=== PATIENT | female | born 1960 | race Caucasian/White ===

== ENCOUNTER 2019-08-25 23:50 | Inpatient (IN) | payer MEDICARE, MEDICAID, SELFPAY ==
[2019-08-25 23:51] VITALS: PULSE 79; RESP 20; TEMP 36.3; O2SAT 98
[2019-08-26] VITALS (45 sets, daily range): BP systolic 82–136; BP diastolic 36–74; PULSE 64–98; RESP 4–26; TEMP 36.4–37.2; O2SAT 90–100
[2019-08-26] MEDS: Aspirin 81 MG CHEW 324 MG CH (00:06)
--- NOTE | 2019-08-26 00:08 | ED.GENADUL_ITS ---
Discharge Plan Disposition Patient Disposition: [facility] INPATIENT Condition: Poor Discharge Details Chief Complaint: Chest Pain Clinical Impression: Chest pain, COPD (chronic obstructive pulmonary disease) Primary Care Provider: Wendy,Local ED Provider: Rico Starks Mobile Meds and New Rx's Prescriptions: No Action atorvastatin 80 mg Tablet 80 mg PO QHS RF: 0 ipratropium-albuterol 0.5 mg-3 mg(2.5 mg base)/3 mL Solution For Nebulization 3 ml INHALATION QID RF: 0 metoprolol succinate 50 mg Tablet Extended Release 24 Hr 50 mg PO DAILY RF: 0 alendronate 70 mg Tablet 70 mg PO QWEEK RF: 0 thiamine HCl (vitamin B1) 100 mg Tablet 100 mg PO DAILY RF: 0 clopidogrel 75 mg Tablet 75 mg PO DAILY RF: 0 nicotine 10 mg Cartridge 1 inh INHALATION 4-6XD PRNRF: 0 aspirin [Aspir-81] 81 mg Tablet,Delayed Release (Dr/Ec) 81 mg PO DAILY RF: 0 nitroglycerin 0.4 mg Tablet, Sublingual 0.4 mg sublingual PRN PRNRF: 0 folic acid 1 mg Tablet 1 mg PO DAILY RF: 0 lisinopril 5 mg Tablet 5 mg PO DAILY RF: 0 furosemide 20 mg Tablet 60 mg PO BID RF: 0 albuterol sulfate 90 mcg/actuation Hfa Aerosol Inhaler 2 puff INHALATION RF: 0 tiotropium bromide 18 mcg Capsule, W/Inhalation Device 18 mcg INHALATION DAILY RF: 0 pregabalin 150 mg Capsule 150 mg PO DAILY RF: 0 calcium carbonate-vitamin D3 250-125 mg-unit Tablet 1 tab PO DAILY RF: 0 budesonide-formoterol 160-4.5 mcg/actuation Hfa Aerosol Inhaler 2 puff INHALATION BID RF: 0 omeprazole 20 mg Tablet,Delayed Release (Dr/Ec) 20 mg PO DAILY RF: 0 Medical Decision Making Patient presenting with onset of chest pain and shortness of breath over the last few hours. She had a stent placed about a month ago at [facility]. Will attempt to get those records as well as her previous EKG and med list. She is given aspirin here. She is given a second nitroglycerin. She is given morphine. She has had 2 DuoNeb's. She still has wheezing. Portable chest x-ray and laboratory studies obtained. Her revised [place] score makes her low probability for PE so d-dimer sent. Records obtained from [facility]. Patient presented to them at the beginning of July with chest pain and new left bundle branch block. She had intra-aortic balloon pump for period of time before receiving a stent in the left main/LAD. She has history of lung cancer with resection. CT scan done at [facility] revealed a new pulmonary nodule. She has cardiomyopathy and CHF with an LV ejection fraction around 30%. She has a history of alcohol abuse. She continues to smoke. Patient's left bundle branch block is old and compared to EKG from [facility] unchanged. Laboratory studies are unremarkable. Troponin negative. D- dimer still pending. Chest x-ray shows what presumably is some postoperative changes and COPD changes but nothing definite in terms of consolidation or edema. Patient doing better after 2 mg of morphine IV. Case discussed with hospitalist for admission and trending of enzymes as well as treatment of COPD. Patient's d-dimer came back elevated. Will proceed with CTA of chest. Second troponin being drawn now. Patient to be admitted to hospitalist service for further management. Medical Records Medical records reviewed: Yes I reviewed the patient's medical records. Lab Data Lab results reviewed: Yes I reviewed the patient's lab results. ECG Data Attestation: I personally reviewed and interpreted this ECG (s) as follows: Prior ECG tracings: available for review Interpretation: Sinus rhythm at 74. Left bundle branch block present. Left axis. No acute ST elevation or depression. HPI General Mode of arrival: EMS . Date/Time Provider Initiated Documentation: 08/25/19 23:55 . Limitations to Documentation: no limitations . Information obtained by: patient, family and old records reviewed . HPI Narra tive: Patient is brought in by ambulance with chest pain and shortness of breath. Patient is visiting from [place]. Within the last month, she underwent stent placement in the left main trunk extending into the LAD. She continues to smoke on and off. She does not know her medications. She reports being fine until tonight when she went out to smoke. She reports developing chest pain, wheezing, shortness of breath. EMS was called. She received 2 DuoNeb treatment in route as well as 1 sublingual nitroglycerin. She reports feeling a little better but still has difficulty breathing and pain. There is no radiation of pain. She denies being ill prior with any fever or cough. She denies nausea, abdominal pain, diaphoresis. Related Data Home Medications Medication Instructions Recorded Confirmed albuterol sulfate 2 puff INHALATION 08/26/19 alendronate 70 mg PO QWEEK 08/26/19 08/26/19 aspirin [Aspir-81] 81 mg PO DAILY 08/26/19 08/26/19 atorvastatin 80 mg PO QHS 08/26/19 08/26/19 budesonide-formoterol 2 puff INHALATION BID 08/26/19 08/26/19 calcium carbonate-vitamin D3 1 tab PO DAILY 08/26/19 08/26/19 clopidogrel 75 mg PO DAILY 08/26/19 08/26/19 folic acid 1 mg PO DAILY 08/26/19 08/26/19 furosemide 60 mg PO BID 08/26/19 08/26/19 ipratropium-albuterol 3 ml INHALATION QID 08/26/19 08/26/19 lisinopril 5 mg PO DAILY 08/26/19 08/26/19 metoprolol succinate 50 mg PO DAILY 08/26/19 08/26/19 nicotine 1 inh INHALATION 4-6XD PRN 08/26/19 08/26/19 nitroglycerin 0.4 mg SUBLINGUAL PRN PRN 08/26/19 08/26/19 omeprazole 20 mg PO DAILY 08/26/19 08/26/19 pregabalin 150 mg PO DAILY 08/26/19 08/26/19 thiamine HCl (vitamin B1) 100 mg PO DAILY 08/26/19 08/26/19 tiotropium bromide 18 mcg INHALATION DAILY 08/26/19 08/26/19 Allergies Allergy/AdvReac Type Severity Reaction Status Date / Time No Known Allergies Allergy Unverified 08/26/19 00:00 General Stated Complaint: Chest Pain FELICITA: 2 Review of Systems Narrative: 06/16 Review of Systems completed and is negative except as stated above in HPI (Systems reviewed: Const, Eyes, ENT, Resp, CV, GI, , MSK, Skin, Neuro) [facility] Medical History (Updated 08/26/19 @ 01:07 by Rico Starks MD) CAD (coronary artery disease) (Chronic) Cardiomyopathy (Chronic) CHF (congestive heart failure) (Chronic) COPD (chronic obstructive pulmonary disease) (Chronic) HTN (hypertension) (Chronic) Hypercholesterolemia (Chronic) Left bundle branch block (Chronic) Lung cancer (Chronic) Surgical History (Updated 08/26/19 @ 01:07 by Rico Starks MD) History of heart artery stent (Acute) S/P appendectomy (Resolved) S/P partial lobectomy of lung (Chronic) Social History (Updated 08/26/19 @ 01:08 by Rico Starks MD) Smoking/Tobacco Use Status: Current every day Tobacco Type: cigarettes Alcohol Intake: current Alcohol Intake frequency: 3 or more drinks per day Alcohol type: beer Substance use type: does not use Do you feel safe at home: Yes Exam Narrative Exam Narrative: Vitals: Afebrile. Normal vital signs with normal room air pulse oximetry. Const: WDWN female in NAD. HEENT: NC/AT. Normal facial exam. Eyes: Normal conjunctiva and sclera. Neck: Supple. Trachea midline. Lungs: Mild respiratory distress with decreased breath sounds and wheezing thro ughout. Cor: RRR without murmur/gallop. Good radial pulses. GI: Soft. NT/ND. No guarding or rebound. Neuro: A+O x 3. Normal speech and mentation. Cranial nerves grossly intact. No gross motor or sensory deficit. Ext: No C/C/E. No calf tenderness. Skin: Warm and dry without rash. Course Vital Signs Vital signs: Vital Signs Temperature 97.3 F L 08/25/19 23:51 Pulse 79 08/25/19 23:51 Respiratory Rate 20 08/25/19 23:51 Pulse Oximetry 98 08/25/19 23:51 Temperature 97.3 F L 08/25/19 23:51 Temperature Source Skin 08/25/19 23:51 Pulse 79 08/25/19 23:51 Respiratory Rate 20 08/25/19 23:51 Respiratory Effort Labored 08/25/19 23:51 Pulse Oximetry 98 08/25/19 23:51 Oxygen Delivery Method Room Air 08/25/19 23:51 Oxygen Flow Rate 0 08/25/19 23:51 Pain Level 7 08/25/19 23:51
[2019-08-26] MEDS: MORPHine 10 MG/ML VIAL 2 MG IVP (00:25)
--- NOTE | 2019-08-26 00:25 | DI.RAD_ITS ---
EXAM: XR PORTABLE CHEST AP INDICATION: CP/SOB. COMPARISON: No exams were available for comparison TECHNIQUE: 2D digital imaging was performed. FINDINGS: The heart is at the upper limits of normal given the projection. There is atherosclerosis of the thor acic aorta. No pleural effusions or pneumothoraces are identified. There is mild prominence of the pulmonary vasculature and interstitium. No focal consolidating infiltrates are seen. IMPRESSION: Prominent pulmonary vasculature and interstitium. This may represent pulmonary edema or interstitial pneumonia. Please correlate clinically.
[2019-08-26 00:27] LABS: Abs Immature Grans 0.02 k/cumm (0.0-0.09); Absolute Basophil Count 0.09 k/cumm (0.0-0.2); Absolute Eosinophil Count 0.67 k/cumm (0.0-0.7); Absolute Lymphocyte Count 2.66 k/cumm (1.2-3.4); Absolute Monocyte Count 1.19 k/cumm (0.11-0.7); Absolute Neutrophil Count 4.24 k/cumm (1.2-6.7); Eosinophils % 7.6; HCT 36.3 % (36.0-46.0); Immature Grans % 0.2; Mean Corp. HGB Concentration 33.1 g/dL (32.0-36.0); Mean Corpuscular Hemoglobin 31.1 pg (27.0-33.0); Mean Platelet Volume 9.6 fL (8.0-11.0); Monocytes % 13.4; Neutrophils % 47.8; Platelet Count 422 x1000/uL (130-400); RBC 3.86 m/cumm (4.00-5.20); RBC Distribution Width 12.8 % (11.7-14.6); White Blood Cell Count 8.87 k/cumm (4.4-10.8)
[2019-08-26 00:43] LABS: ALT 35 U/L (14-59); AST 24 U/L (15-37); Albumin 3.8 g/dL (3.4-5.0); Alkaline Phosphatase 62 U/L (46-116); Anion Gap 9.3 mmol/L (3-11); BUN 29 mg/dL (7-18); Bilirubin, Total 0.2 mg/dL (0.2-1.0); CO2 26.7 mmol/L (21.0-32.0); CREATININE 0.98 mg/dL (0.55-1.02); Calcium 8.4 mg/dL (8.5-10.1); Chloride 97 mmol/L (98-107); Glucose 69 mg/dL (74-106); Potassium 4.2 mmol/L (3.5-5.1); Sodium 133 mmol/L (136-145); Total Protein 7.8 g/dL (6.4-8.2); Troponin I < 0.05 ng/Ml (<0.06)
[2019-08-26 00:45] LABS: PTT Activated 23.7 sec (21.0-31.4); Prothrombin Time 9.7 sec (9.3-11.0)
[2019-08-26 00:49] LABS: NT-proBNP 1694 pg/mL (<300)
[2019-08-26] MEDS: Ondansetron 4 MG/2 ML VIAL IVP (01:35)
--- NOTE | 2019-08-26 01:44 | HPE_ITS ---
Date of service: 08/26/19 Time of Service: 01:44 Assessment and Plan Assessment and plan (1) Dyspnea: Status: Acute Assessment and plan: Differential diagnosis includes PE, CHF, COPD exacerbation. CTA of the chest is pending at this time. Check the results of his CTA but given her questionable venous compression study in her right leg I would not start her on Lovenox. If her CTA is negative and her formal duplex scan of her legs is negative in the morning then we can discontinue full- strength Lovenox just put her on DVT prophylactic levels. As far as rest of the work-up for her dyspnea we will get a get an echocardiogram in the morning and repeat her proBNP in the morning. I will treat her for COPD exacerbation however we need to keep in mind that she may actually have some acute on chronic heart failure from her ischemic cardiomyopathy. Because her blood pressures are on the low side I decided not to give her IV Lasix tonight. Qualifiers: Dyspnea type: shortness of breath Qualified Code(s): R06.02 - Shortness of breath (2) Chest pain at rest: Status: Acute Assessment and plan: so far no evidence for ACS. Initial troponin was negative. I will continue to cycle her troponin levels. She will continue on her beta blockers, ASA and plavix. She will be started on lovenox pending results of her CTA and her venous duplex of her legs. I suspect that her CP is secondary to her COPD/coughing and not d/t ACS. (3) COPD (chronic obstructive pulmonary disease): Status: Chronic Assessment and plan: Given her acute wheezing and dyspnea and continued smoking I suspect she is having COPD exacerbation. As such I will treat her with IV corticosteroids and aerosolized bronchodilators. There is no evidence for acute pulmonary infection. (4) CAD (coronary artery disease): Status: Chronic Assessment and plan: Her chest pain is atypical for ischemic pain however she has known coronary artery disease with recent coronary stenting. Therefore a low threshold for acute coronary syndrome should be maintained. She is been started on aspirin should be kept on her Plavix. As her blood pressure will tolerate we will keep her on her lisinopril and Toprol-XL. I will continue to cycle her troponin levels and check an echocardiogram in the morning. We will also get a repeat EKG in the morning. Her chest pain did not respond to nitroglycerin but seem to respond to morphine suggesting that this is not ischemic pain. (5) Cardiomyopathy: Status: Chronic Assessment and plan: Patient has evidence of at least a moderate cardiomyopathy. Her proBNP is elevated 1694. Her ultrasound of her lungs was not remarkable for pulmonary edema and currently her systolic blood pressures are in the low 90s and therefore get a hold off giving her any IV Lasix tonight. I will recheck her proBNP in the morning along with her other labs including h er troponin and BNP. If her CTA is negative and her venous duplex scan of her legs is negative and her proBNP remains elevated then consideration for acute on chronic congestive heart failure due to ischemic cardiomyopathy would be a higher priority (6) Elevated d-dimer: Status: Acute Assessment and plan: Rule out DVT, rule out PE. Check results of CTA of the chest. I reviewed the CTA results myself and did not see any obvious pulmonary embolism however the formal report is pending at this time. Given my findings of the right deep femoral and superficial femoral veins I am going to get a formal venous duplex scan and started on Lovenox. History of Present Illness History of Present Illness Chief Complaint: shortness of breath, chest pain Narrative: 59-year-old female smoker with history as severe COPD, coronary artery disease, recent myocardial infarction July 06, 2019 requiring intra-aortic balloon pump and subsequent DSE stent to her LAD, hypertension, hyperlipidemia, ischemic cardiomyopathy, chronic alcohol abuse, tobaccoism is currently visiting her grandson in [facility]. Patient is from [facility]. She presents to the emergency room at [facility] with acute onset of shortness of breath that began around 9 PM associated with substernal chest tightness and sharp pain with no pleuritic component to it. She has a chronic smoker's cough is been nonproductive. She has had no fever or chills or rigors. Upon presentation to the emergency department she was short of breath with respiratory rate of 20 breaths/min with oxygen saturation 98% on room air and a pulse of 79 bpm with a left bundle branch block pattern. She was afebrile. Blood pressure is 104/51. She was seen in the emergency department by Dr. Mariely Starks and subsequently by myself. Diagnostic work-up included routine labs including CBC, CMP, proBNP, troponin I, d-dimer, pro time and PTT. She also underwent EKG and chest x-ray. CBC was unremarkable. Specifically there was no leukocytosis and no anemia. CMP showed a mildly elevated BUN of 29 otherwise normal creatinine 0.98. LFTs were normal. proBNP was elevated at 1694. Troponin I was less than 0.05. D-dimer is elevated at 1641. Pro time is normal at 9.7 INR 1.0 PTT is 23.7. Chest x-ray showed no focal consolidation. Pleural space was unremarkable. Lungs showed low lung volumes with some prominent indistinct pulmonary vasculature but no consolidation. Radiologist read the prominent pulmonary vasculature is likely representing pulmonary edema. CTA of the chest is pending at this time. EKG demonstrates sinus rhythm at a rate of 74 bpm with a left bundle branch block pattern. This is similar to her ECG from July 06, 2019. Treatment by EMS included Solu-Medrol 125 mg IV and DuoNeb aerosol treatments x2 and sublingual nitroglycerin x1. She was given 3 and 24 mg of aspirin in the emergency department. Records obtained from a medical center indicates that she presented with a new onset left bundle branch block and chest pain along with elevated troponin levels consistent with a STEMI. She underwent cardiac catheterization was found to have left main artery disease with critical narrowing of her ostium of her LAD. She had an intra-aortic balloon pump placed on July 06 and subsequent PCI with drug-eluting stent to her LAD was placed on July 08, 2019. She was found to have a cardiomyopathy with a left ventricular ejection fraction around 30%. Although the patient states that she quit smoking at the time of her CA last month she presented to the emergency department with cigarette butts in her bra. Her chest pain was improved with morphine 2 mg IV push. Patient is now being admitted to the medical/surgical floor on telemetry for further evaluation of her dyspnea and chest pain. Presumption of her dyspnea is secondary to COPD exacerbation with a possible component of CHF. However CTA is pending at this time. I have started her empirically on Lovenox 1 mg/kg subcu every 12 hours until we get the results of her CTA of her chest and can get a formal venous duplex scan of her legs in the morning. I performed bedside [id number] ultrasound of her lungs as well as an echocardiogram venous compression study of her legs. Lung [id number] ultrasound study showed primarily a line pattern in both lungs with the exception of the left lung base there was some increased number of B-lines consistent with interstitial process. No pleural effusions were seen. No lung consolidation was seen. [id number] echocardiogram demonstrated moderate left ventricular dysfunction with paradoxical motion of the septal wall, hypokinetic anterior and anterolateral wall, akinetic apical wall and hypokinetic lateral wall. Right ventricular size and systolic function looks normal. There appears to be biatrial enlargement. Venous compression study of her lower extremities was normal on the left side however on the right side I had difficulty getting adequate compression of the right common femoral vein at the greater saphenous vein junction and at the split off of the deep femoral vein and superficial femoral vein. Review of Systems Constitutional Constitutional: Denies chills and Denies fever(s) Eyes Eyes: Reports system reviewed and no additional complaints, except as docu ENT Ears, Nose, Mouth, and Throat: Reports system reviewed and no additional complaints, except as docu Cardiovascular Cardiovascular: Reports as per HPI Respiratory Respiratory: Reports as per HPI Gastrointestinal Gastrointestinal: Reports system reviewed and no additional complaints, except as docu Genitourinary Genitourinary: Reports system reviewed and no additional complaints, except as docu Musculoskeletal Musculoskeletal: Reports system reviewed and no additional complaints, except as docu Integumentary/Breasts Skin/Breast: Reports system reviewed and no additional complaints, except as docu Neurologic Neurologic: Reports system reviewed and no additional complaints, except as docu Endocrine Endocrine: Reports system reviewed and no additional complaints, except as docu Hematologic/Lymphatic Hematologic/Lymphatic: Reports system reviewed and no additional complaints, except as docu Allergic/Immunologic Allergic/Immunologic: Reports system reviewed and no additional complaints, except as docu PFSH Family History (Updated 08/26/19 @ 04:13 by Blas Rodney) Mother Depression Dementia Parkinsonism Brother Heart disease Brother Heart disease Social History (Updated 08/26/19 @ 04:14 by Blas Rodney) Smoking/Tobacco Use Status: Current every day Tobacco Type: cigarettes Alcohol Intake: current Alcohol Intake frequency: 3 or more drinks per day Alcohol type: beer Substance use type: does not use Do you feel safe at home: Yes Meds Home Medications and Allergies Home Medications Medication Instructions Recorded Confirmed Type albuterol sulfate 2 puff INHALATION 08/26/19 History alendronate 70 mg PO QWEEK 08/26/19 08/26/19 History aspirin [Aspir-81] 81 mg PO DAILY 08/26/19 08/26/19 History atorvastatin 80 mg PO QHS 08/26/19 08/26/19 History budesonide-formoterol 2 puff INHALATION BID 08/26/19 08/26/19 History calcium carbonate-vitamin D3 1 tab PO DAILY 08/26/19 08/26/19 History clopidogrel 75 mg PO DAILY 08/26/19 08/26/19 History folic acid 1 mg PO DAILY 08/26/19 08/26/19 History furosemide 60 mg PO BID 08/26/19 08/26/19 History ipratropium-albuterol 3 ml INHALATION QID 08/26/19 08/26/19 History lisinopril 5 mg PO DAILY 08/26/19 08/26/19 History metoprolol succinate 50 mg PO DAILY 08/26/19 08/26/19 History nicotine 1 inh INHALATION 4-6XD PRN 08/26/19 08/26/19 History nitroglycerin 0.4 mg SUBLINGUAL PRN PRN 08/26/19 08/26/19 History omeprazole 20 mg PO DAILY 08/26/19 08/26/19 History pregabalin 150 mg PO DAILY 08/26/19 08/26/19 History thiamine HCl (vitamin B1) 100 mg PO DAILY 08/26/19 08/26/19 History tiotropium bromide 18 mcg INHALATION DAILY 08/26/19 08/26/19 History Allergies Allergy/AdvReac Type Severity Reaction Status Date / Time No Known Allergies Allergy Unverified 08/26/19 00:00 Exam Narrative Exam Narrative: Middle-aged female who appears to be older than her stated age of 59. She has a disheveled appearance. She has multiple tattoos. She is not in acute respiratory distress. No accessory respiratory muscle use. HEENT is unremarkable. Neck is supple no JVD normal carotid pulses no bruits Lungs reveal scattered end expiratory wheezes no rhonchi or rales. Heart is regular without appreciable murmur rub or gallop. She has a fixed split S2. Abdomen is obese soft and nontender without organomegaly without palpable masses or bruits. Extremities without peripheral cyanosis or edema. No calf tenderness or swelling. Neurologic exam is grossly intact nonfocal. Results Labs Result diagrams: 08/25/19 23:55 08/25/19 23:55 Labs: Laboratory Results - last 24 hr 08/25/19 08/25/19 08/25/19 23:55 23:55 23:55 WBC 8.87 RBC 3.86 L Hgb 12.0 Hct 36.3 MCV 94.0 MCH 31.1 MCHC 33.1 RDW 12.8 Plt Count 422 H MPV 9.6 Immature Gran % 0.2 Neutrophils % 47.8 Lymphocytes % 30.0 Monocytes % 13.4 Eosinophils % 7.6 Basophils % 1.0 Absolute Neutrophils 4.24 Absolute Lymphocytes 2.66 Absolute Monocytes 1.19 H Absolute Eosinophils 0.67 Absolute Basophils 0.09 PT INR APTT Sodium 133 L Potassium 4.2 Chloride 97 L Carbon Dioxide 26.7 Anion Gap 9.3 BUN 29 H Creatinine 0.98 Estimated GFR/1.73 m2 57.70 Glucose 69 L Calcium 8.4 L Magnesium 2.0 Total Bilirubin 0.2 AST 24 ALT 35 Alkaline Phosphatase 62 Troponin I < 0.05 NT-Pro-B Natriuret Pep 1694 Total Protein 7.8 Albumin 3.8 08/25/19 23:55 WBC RBC Hgb Hct MCV MCH MCHC RDW Plt Count MPV Immature Gran % Neutrophils % Lymphocytes % Monocytes % Eosinophils % Basophils % Absolute Neutrophils Absolute Lymphocytes Absolute Monocytes Absolute Eosinophils Absolute Basophils PT 9.7 INR 1.0 APTT 23.7 Sodium Potassium Chloride Carbon Dioxide Anion Gap BUN Creatinine Estimated GFR/1.73 m2 Glucose Calcium Magnesium Total Bilirubin AST ALT Alkaline Phosphatase Troponin I NT-Pro-B Natriuret Pep Total Protein Albumin Last Vital Signs Temp 36.3 C L 08/25/19 23:51 Pulse 87 08/26/19 00:17 Resp 16 08/26/19 00:20 BP 107/43 L 08/26/19 00:17 Pulse Ox 94 L 08/26/19 00:20
[2019-08-26 01:45] LABS: D-Dimer 1641 ng/mlFEU (<500)
--- NOTE | 2019-08-26 01:50 | DI.VRAD_ITS ---
PROCEDURE INFORMATION: Exam: XR Chest, 1 View Exam date and time: 08/26/2019 12:02 AM Age: 59 years old Clinical indication: Shortness of breath; Type not specified; Patient HX: Chest pain, SOB; Additional info: HX lung CA, partial lobectomy, copd, cad, chf TECHNIQUE: Imaging protocol: XR of the chest Views: 1 view. COMPARISON: No relevant prior studies available. FINDINGS: Lungs: Low lung volumes. Prominent, indistinct pulmonary vasculature. No focal consolidation. Pleural space: Unremarkable. No pleural effusion. No pneumothorax. Heart/Mediastinum: Enlarged cardiomediastinal silhouette. Bones/joints: Unremarkable. IMPRESSION: Prominent, indistinct pulmonary vasculature may be accentuated by low lung volumes but likely represents pulmonary edema. No focal consolidation. Dictated and Authenticated by: Hay Sarmiento MD. Ordering:CARMELA Gómez MD
--- NOTE | 2019-08-26 02:10 | NUR.NOTE ---
Nursing Note: 0115: pt complaining of nausea. Dr Starks informed. Orders given
--- NOTE | 2019-08-26 02:11 | NUR.NOTE ---
Nursing Note: 0135: Pt now resting. States pain is about a 1. No other c/o at this time.
--- NOTE | 2019-08-26 02:52 | NUR.NOTE ---
Nursing Note: Blood for repeat troponin drawn and sent to lab.
--- NOTE | 2019-08-26 03:16 | DI.CT_ITS ---
EXAM: CT CHEST PE CTA CLINICAL HISTORY: CP/SOB. TECHNIQUE: Imaging Protocol: Axial CT angiography was performed with multi-slice acquisition and mu lti-planar and/or 3D reconstructions. CONTRAST MATERIAL: Intravenous: Omnipaque 350 Contrast volume:70 mL contrast route:IV - Oral: COMPARISON: XR PORTABLE CHEST AP from 08/26/2019 FINDINGS: Pulmonary Arteries: No evidence of filling defect to suggest pulmonary emboli. Tracheobronchial tree: Patent where visualized. Mediastinum and Binta: No dominant adenopathy or fluid collection. Pulmonary parenchyma: Emyhysematous changes are seen in the lungs. No focal consolidating infiltrate s are present. Mild dependent atelectatic changes are seen in the lung bases. Pleura: No effusion or pneumothorax. Heart/Aorta: No evidence of thoracic aortic aneurysm or dissection. There is atherosclerosis present . The heart is not dilated. Coronary artery calcifications are present. No significant pericardial effusion or evidence of right heart strain is present. Upper abdomen: Cholelithiasis. There is a question of calcification in the wall of the gallbladder. Bones: Degenerative changes are seen in the spine. IMPRESSION: 1. There is no evidence of a pulmonary embolus, thoracic aortic dissection or aneurysm. 2. Pulmonary emphysema. 3. Cholelithiasis. Question of calcification of the wall of the gallbladder. CT scan of the abdomen and or ultrasound of the gallbladder should be considered for further evaluation. DATA REPOSITORY: All CT scans at this facility are submitted to the National Radiology Data Registry (NRDR) Dose Index Registry (DIR) with the [employer] (A[employer]). RADIATION OPTIMIZATION: All CT scans at this facility use at least one of these dose optimization te chniques: automated exposure control; mA and/or kV adjustment per patient size (includes targeted exa ms where dose is matched to clinical indication); or iterative reconstruction.
[2019-08-26] MEDS: Omnipaque 350 MG/ML 100 ML BTL IJ (03:19)
--- NOTE | 2019-08-26 03:25 | NUR.NOTE ---
Nursing Note: Return from CT. Patient denies any pain at this time.
[2019-08-26] MEDS: Enoxaparin 80 MG/0.8 ML SYR SC (03:35)
--- NOTE | 2019-08-26 04:23 | DI.VRAD_ITS ---
PROCEDURE INFORMATION: Exam: CT Angiography Chest With Contrast Exam date and time: 08/26/2019 3:13 AM Age: 59 years old Clinical indication: Pain and abnormal findings; Abnormal diagnostic tests; Shortness of breath; Chest pain; Type not specified; Prior surgery; Surgery date: 6+ months; Surgery type: Partial lobectomy , HX of lung CA 2008; Patient HX: SOB, cp, elevated d-dimer, copd, chf, . left bundle branch block, hypertension, heart artery stent TECHNIQUE: Imaging protocol: Computed tomographic angiography of the chest with intravenous contrast. 3D rendering: MIP and/or 3D reconstructed images were created by the technologist. Radiation optimization: All CT scans at this facility use at least one of these dose optimization techniques: automated exposure control; mA and/or kV adjustment per patient size (includes targeted exams where dose is matched to clinical indication); or iterative reconstruction. Contrast material: OMNIPAQUE 350; Contrast volume: 70 ml; Contrast route: IV RAC; COMPARISON: XR PORTABLE CHEST AP 08/26/2019 12:07 AM FINDINGS: Pulmonary arteries: Normal. No pulmonary emboli. Aorta: Unremarkable. No aortic aneurysm. No aortic dissection. Lungs: Minimal pulmonary emphysema. No acute pulmonary infiltrate. Pleural space: Unremarkable. No pneumothorax. No pleural effusion. Heart: Unremarkable. No cardiomegaly. No pericardial effusion. Gallbladder and bile ducts: Cholelithiasis. Lymph nodes: Unremarkable. No enlarged lymph nodes. Bones/joints: Unremarkable. No acute fracture. Soft tissues: Unremarkable. Other findings: Postsurgical change in the right hemithorax. IMPRESSION: No acute finding. Dictated and Authenticated by: Dominic Pizano MD. Ordering:CARMELA Gómez MD
[2019-08-26] MEDS: Albuterol/Ipratropium 3 ML UPD VIAL UPD (04:47)
[2019-08-26] MEDS: methylPREDNISolone SUCC 125 MG VIAL 60 MG IVP ×2 (06:25→14:17)
[2019-08-26 06:41] LABS: Troponin I < 0.05 ng/Ml (<0.06)
[2019-08-26 06:51] LABS: Abs Immature Grans 0.01 k/cumm (0.0-0.09); Absolute Basophil Count 0.02 k/cumm (0.0-0.2); Absolute Eosinophil Count 0.01 k/cumm (0.0-0.7); Absolute Lymphocyte Count 0.41 k/cumm (1.2-3.4); Absolute Monocyte Count 0.06 k/cumm (0.11-0.7); Absolute Neutrophil Count 4.16 k/cumm (1.2-6.7); Basophils % 0.4; Eosinophils % 0.2; HCT 35.3 % (36.0-46.0); HGB 11.6 g/dL (12.0-15.5); Immature Grans % 0.2; Lymphocytes % 8.8; Mean Corp. HGB Concentration 32.9 g/dL (32.0-36.0); Mean Corpuscular Hemoglobin 30.9 pg (27.0-33.0); Mean Corpuscular Volume 94.1 fL (80-95); Mean Platelet Volume 9.7 fL (8.0-11.0); Monocytes % 1.3; Neutrophils % 89.1; Platelet Count 395 x1000/uL (130-400); RBC 3.75 m/cumm (4.00-5.20); RBC Distribution Width 12.8 % (11.7-14.6); White Blood Cell Count 4.67 k/cumm (4.4-10.8)
[2019-08-26 06:53] LABS: Anion Gap 9.4 mmol/L (3-11); BUN 28 mg/dL (7-18); CO2 24.6 mmol/L (21.0-32.0); CREATININE 0.98 mg/dL (0.55-1.02); Calcium 8.1 mg/dL (8.5-10.1); Chloride 99 mmol/L (98-107); Glucose 132 mg/dL (74-106); Potassium 5.5 mmol/L (3.5-5.1); Sodium 133 mmol/L (136-145)
[2019-08-26 07:21] LABS: NT-proBNP 1808 pg/mL (<300); Troponin I < 0.05 ng/Ml (<0.06)
[2019-08-26] MEDS: Aspirin E.C. 81 MG TABEC PO (08:16)
[2019-08-26] MEDS: Pregabalin 50 MG CAP 150 MG PO (08:16)
[2019-08-26] MEDS: Folic Acid 1 MG TAB PO (08:17)
[2019-08-26] MEDS: Metoprolol CR 50 MG TABCR PO (08:17)
[2019-08-26] MEDS: Thiamine 100 MG TAB PO (08:17)
[2019-08-26] MEDS: Omeprazole 20 MG CAPCR 40 MG PO (08:18)
[2019-08-26] MEDS: Clopidogrel 75 MG TAB PO (08:18)
[2019-08-26 08:30] LABS: D-Dimer 1302 ng/mlFEU (<500)
[2019-08-26] MEDS: Budesonide/Formoterol 160/4.5 6 GM 60 PUFF INH IH ×2 (08:34→19:39)
--- NOTE | 2019-08-26 09:00 | DI.US_ITS ---
APPROVED REPORT EXAM: Comprehensive 2D, Doppler, and color-flow Echocardiogram Patient Location: In-Patient [place] Clerk: Araceli Funes RDCS (AE) Rhythm: BBB Indications: dyspnea, chest pain. hx LAD DSE stent 07/08/19, NSTEMI/ LBBB 07/06/19 Conclusion Normal left ventricular size and wall thickness EF is 55% with mild apical and distal anterior hypo kinesis The left atrium is mildly dilated The aortic valve is structurally normal Thickened mitral leaflets with mild regurgitation Trace tricuspid regurgitation Wall motion Left Ventricle The left ventricle is normal size. Left ventricular systolic function is borderline. There is normal left ventricular wall thickness. apical and distal anterior hypokinesis Transmitral Doppler flow puneet angela suggests impaired LV relaxation. LVEF is estimated to be 55% Right Ventricle The right ventricle is normal size. The right ventricular systolic function appears normal. Atria Left atrium is mildly dilated. The right atrium size is normal. Aortic Valve The aortic valve is normal in structure. There is no aortic valvular stenosis. No aortic regurgitatio n is present. Mitral Valve Mitral valve leaflets are mildly thickened. Mild mitral annular calcification. Mild mitral regurgitat ion.regurgitation. Tricuspid Valve The tricuspid valve is normal in structure. Trace tricuspid regurgitation. Pulmonic Valve Pulmonic valve is not well visualized. Great Vessels The aortic root is normal in size. IVC is top normal in size and collapses >50% with inspiration. Pericardium There is no pericardial effusion. 2D Dimensions IVSd 0.70 cm F: 0.6-1.0 LV EDV A2C 104.00 mL PWd 0.70 cm F: 0.6 - 1.0 LV EDV A4C 89.10 mL LVDd 5.60 cm F: 3.8 - 5.2 LA Volume Index A2C 34.35 mL/m2 LVDs 3.95 cm F: 2.2 - 3.5 LA Volume Index A4C 38.17 mL/m2 Aortic Root 3.15 cm F: 2.7 - 3.3 LA Volume Index Biplane 37.33 mL/m2 RA Area A4C 10.53 cm2 LA Area A4C 21.83 cm2 LVOT 1.95 cm (M/F) 1.5-2.5 LA Area A2C 20.09 cm2 Ascending Aorta 2.96 cm F: 2.3 - 3.1 EF AP4 54.43 % LVEF (Teich) 55.35 % EF AP2 55.77 % LVEF (Porras's) 51.93 % F: 54 - 74 EF BP 51.93 % LV Volume 74.87 mL F: 46 - 106 LV Volume Index 42.78 mL/m2 F: 29 - 61 FS 29.15 % LV Diastology E/A Ratio 0.7 MED E' 0.09 (>0.07 m/s) LV E/e MED 8.50 (<14) LAT E' 0.10 (>0.1 m/s) LV E/e LAT 7.90 (<14) Pulm Vein s 0.54 m/s PV S/D Ratio 1.01 Pulm Vein d 0.53 m/s Aortic Valve LVOT Area 3.07 cm2 LVOT Vmax 1.13 m/s LVOT Mean Ambrocio. 0.88 m/s LVOT Peak Gr. 5.1 mmHg LVOT Mean Gr. 3.4 mmHg AoV Area/ BSA (Vmax) 1.13 cm2/m2 LVOT VTI 0.200 m AoV Vmax 1.76 (0.5-1.3 m/s) VICKI Mean Ambrocio. Index 1.25 cm2/m2 AoV Mean Ambrocio. 1.24 m/s AoV Peak Grad 12.4 mmHg AoV Mean Grad 6.8 (<5 mmHg) AoV VTI 0.350 (0.18-0.25 m) VTI Ratio 0.66 AoV Area VTI 2.03 (2.5-4.5 cm2) AoV Area/ BSA (VTI) 1.16 cm/m2 Mitral Valve MV E Max Ambrocio. 0.76 (0.4-1.3 m/s) MVA VTI 6.44 (4.0-6.0 cm2) MV A Velocity 1.15 (0.4-1.3 m/s) E/A Ratio 0.64 Tricuspid Valve RAP Estimate 3.00 mmHg
[2019-08-26 09:35] LABS: Troponin I < 0.05 ng/Ml (<0.06)
--- NOTE | 2019-08-26 10:11 | DI.US_ITS ---
EXAM: US EXTREMITY VENOUS BI CLINICAL HISTORY: ELEVATED D-DIMER TECHNIQUE: Bilateral lower extremity venous ultrasound performed using grayscale, color-flow, and sp ectral Doppler analysis. COMPARISON: No previous for comparison. FINDINGS: The bilateral common femoral, femoral and popliteal veins demonstrate normal compressibility, augment ation, and color Doppler. The posterior tibial veins are patent. The saphenofemoral junctions are un remarkable. Note is made of a 2.8 x 0.9 x 2.3 cm left Bowden's cyst. IMPRESSION: Right: Negative for DVT Left: Negative for DVT
--- NOTE | 2019-08-26 11:12 | PHARADMIT ---
Admission Pharmacy Clinical Review Dyspnea, Chest pain, (Hx of recent SD with stent placement) (COPD exacerbation, ?? clot) Cardiology consult Code Status Full Code Current Weight Wgt-71.5 kg Renally Cleared and Narrow Therapeutic Index Meds CrCl~ 45.4 mL/min Meds-OK QTc Value / Action Taken QTc-492 BP Control, Fever BP- 113/70 Tmax- 36.7C Electrolytes reviewed Na- 133 K+5.5 Mag-2.0 DVT Prophylaxis ASA, Plavix, Lovenox 80MG bid Opiate Usage / Scheduled Bowel Regimen Ordered Yes Yes Plt/SCr for Heparin / Enoxaparin Plts-395 SCr-0.98 INR for Warfarin inr-1.1 H/H stable, WBC/Bands H&H- 11.6/35.3 WBC- 4.67 Antibiotic appropriateness none Cultures and Sensitivities none Surgical ABX d/c within 24 hr na DM control / Insulin Dosing BG-132 Heart Failure (Check EF%) (JD's, B-Block, Diuretics) Lasix, Toprol-XL, NTG IV to PO Switch No Home Meds Reviewed Yes Home Meds Not Ordered Alendronate, Spiriva, Comments Lisinopril on Hold,
[2019-08-26 11:59] LABS: Potassium 6.1 mmol/L (3.5-5.1)
[2019-08-26] MEDS: Insulin REGULAR-Human 100 UNITS/ML UNIT 10 UNITS IV (12:30)
[2019-08-26] MEDS: Furosemide 40 MG/4 ML VIAL IVP (12:30)
[2019-08-26] MEDS: Dextrose 50%-Water 25 GM/50 ML SYR IVP (12:31)
[2019-08-26] MEDS: Levalbuterol 1.25 MG/3 ML UPD VIAL UPD (12:59)
[2019-08-26 13:10] LABS: BUN 27 mg/dL (7-18); CREATININE 1.07 mg/dL (0.55-1.02); Calcium 9.1 mg/dL (8.5-10.1); Chloride 96 mmol/L (98-107); Creatine Kinase 86 U/L (26-192); Estimated GFR 52.13 (mL/min/1.73m2); Sodium 133 mmol/L (136-145)
[2019-08-26] MEDS: Ipratropium 0.5 MG/2.5 ML UPD VIAL UPD ×2 (13:10→18:56)
[2019-08-26 13:11] LABS: Glucose 501 mg/dL (74-106)
[2019-08-26 15:13] LABS: Anion Gap 9.4 mmol/L (3-11); BUN 28 mg/dL (7-18); CO2 26.6 mmol/L (21.0-32.0); CREATININE 1.13 mg/dL (0.55-1.02); Calcium 9.6 mg/dL (8.5-10.1); Chloride 97 mmol/L (98-107); Estimated GFR 48.95 (mL/min/1.73m2); Glucose 113 mg/dL (74-106); Sodium 133 mmol/L (136-145)
--- NOTE | 2019-08-26 15:38 | INITIAL_ITS ---
- If Service Date Differs Date of service: 08/26/19 Time of Service: 15:38 Care Management Initial Assess REASON FOR HOSPITALIZATION:: Dyspnea, chest pain. PAST MEDICAL HISTORY/PAST SURGICAL HISTORY:: Medical History: CAD (coronary artery disease), Cardiomyopathy,. CHF (congestive heart failure), COPD (chronic obstructive pulmonary disease),. HTN (hypertension), Hypercholesterolemia, Left bundle branch block, and. Lung cancer. Surgical History: History of heart artery stent, S/P appendectomy (Resolved), and S/P partial lobectomy of lung. PREVIOUS FUNCTIONAL STATUS/SOCIAL/FAMILY SUPPORTS:: Jazmin resides in [place], [place], with her sister and [id number]. She recently came to [place] to visit her grandchildren for the holidays. Jazmin has a son who lives in [place], a daughter and three grandchildren in [place], [place], and a znxzeiss-id-tfg and two grandkids in [place], [place]. She shares her wtglipde-rv-uhc was to her son but he from an overdose 4 years ago. When home and feeling well, Jazmin helps her sister clean the house and do laundry. She enjoys camping, picnics, knitting, and puzzles. Jazmin does not drive but she is independent with her ADLs at baseline. CURRENT FUNCTIONAL STATUS:: Jazmin is lying in bed watching television when CM comes to meet with her. She is pleasant and easily engages in conversation. She shares that her [id number]-lr-ttb drove her to [place] so she could visit with her grandchildren. She plans on returning home to [place] on Sunday if she has been discharged from the hospital by then. ADVANCE DIRECTIVES:: None on file. Has patient been provided with information about the portal?: No Did the patient sign up for the portal?: No CODE STATUS:: Full Code INSURANCE COVERAGE / FINANCIAL ISSUES:: Medicare. CURRENT HOME/COMMUNITY SERVICES/EQUIPMENT:: Jazmin reports she formerly received [facility] PT but is not currently receiving any in-home services. She states she uses oxygen at home but only requires it with activity or at night when sleeping. PRIMARY CARE PHYSICIAN:: No current PCP. Her provider is Dr. Cyndi Gordon of the . POTENTIAL DISCHARGE NEEDS:: Follow-up appointment with PCP and crop consultant. PATIENT/FAMILY EDUCATION NEEDS:: Discharge plan, limitations, follow-up plan, including Ask Me Three and self-management. ANTICIPATED BARRIERS TO DISCHARGE:: None. TRANSPORTATION:: Via private vehicle by family member when ready. PLAN:: Jazmin will be discharged home when medically cleared by provider. Anticipate no new services at time of discharge. [facility] will transport Jazmin home via private vehicle when ready.
--- NOTE | 2019-08-26 16:19 | W.PM.PROGNOT ---
Date of Service Date of service: 08/26/19 Time of Service: 16:19 Subjective Subjective Interval history since last seen: The patient's breathing is significantly better. No more chest pain since last night. Denies dizziness, nausea. She states she uses oxygen at home - 2L at night. She is on 2L during the day here today. We will attempt to wean this. K this morning 5.5 - it was 4.2 yesterday. Per patient, her PCP had told her that her potassium was creeping up about a month ago. It went up as high as 6.1 today. This was treated with D50, regular insulin 10 units IV, veltassa, and the patient was restarted on her lasix. With this, the potassium went down to 5.0. Etiology of hyperkalemia - suspected lovenox. Now d/'rodrick. We will recheck potassium in am. As far as her chest pain, she has ruled out for ACS. We will continue to monitor her on tele because she had a 12 episode run of SVT at 5 am today, asymptomatic, shortly after receiving duonebs. Her nebs since then have been changed to atrovent and xopenex. No recurrences of SVT so far. Her steroids have been switched to PO due to marked improvement. Finally, the patient ruled out for DVT - lovenox now d/c'ed. TEDs and SCDs initiated for DVT ppx. Objective Objective Clinical Data: Abnormal lab results 08/25/19 08/25/19 08/25/19 Range/Units 00:10 23:55 23:55 RBC 3.86 L (4.00-5.20) m/cumm Hgb (12.0-15.5) g/dL Hct (36.0-46.0) % Plt Count 422 H (130-400) x1000/uL Absolute Lymphocytes (1.2-3.4) k/cumm Absolute Monocytes 1.19 H (0.11-0.7) k/cumm D-Dimer 1641 H (<500) ng/mlFEU Sodium 133 L (136-145) mmol/L Potassium (3.5-5.1) mmol/L Chloride 97 L (98-107) mmol/L BUN 29 H (7-18) mg/dL Creatinine (0.55-1.02) mg/dL Glucose 69 L (74-106) mg/dL Calcium 8.4 L (8.5-10.1) mg/dL 08/26/19 08/26/19 08/26/19 Range/Units 06:10 06:10 07:13 RBC 3.75 L (4.00-5.20) m/cumm Hgb 11.6 L (12.0-15.5) g/dL Hct 35.3 L (36.0-46.0) % Plt Count (130-400) x1000/uL Absolute Lymphocytes 0.41 L (1.2-3.4) k/cumm Absolute Monocytes 0.06 L (0.11-0.7) k/cumm D-Dimer 1302 H (<500) ng/mlFEU Sodium 133 L (136-145) mmol/L Potassium 5.5 H D (3.5-5.1) mmol/L Chloride (98-107) mmol/L BUN 28 H (7-18) mg/dL Creatinine (0.55-1.02) mg/dL Glucose 132 H (74-106) mg/dL Calcium 8.1 L (8.5-10.1) mg/dL 08/26/19 08/26/19 08/26/19 Range/Units 09:00 12:45 14:39 RBC (4.00-5.20) m/cumm Hgb (12.0-15.5) g/dL Hct (36.0-46.0) % Plt Count (130-400) x1000/uL Absolute Lymphocytes (1.2-3.4) k/cumm Absolute Monocytes (0.11-0.7) k/cumm D-Dimer (<500) ng/mlFEU Sodium 133 L 133 L (136-145) mmol/L Potassium 6.1 H* (3.5-5.1) mmol/L Chloride 96 L 97 L (98-107) mmol/L BUN 27 H 28 H (7-18) mg/dL Creatinine 1.07 H 1.13 H (0.55-1.02) mg/dL Glucose 501 H* D 113 H D (74-106) mg/dL Calcium (8.5-10.1) mg/dL Vital Signs Temperature 37.2 C 08/26/19 11:47 Temperature Source Tympanic 08/26/19 11:47 Pulse 92 H 08/26/19 15:15 Pulse Rhythm Regular 08/26/19 08:30 Pulse 76 08/26/19 03:46 Respiratory Rate 16 08/26/19 13:28 Respiratory Effort Non-Labored 08/26/19 08:30 Respiratory Depth Normal 08/26/19 08:30 Respiratory Pattern Normal 08/26/19 08:30 Blood Pressure 136/71 08/26/19 11:47 Blood Pressure Mean 56 08/26/19 03:45 Pulse Oximetry 96 08/26/19 13:28 Oxygen Delivery Method Nasal Cannula 08/26/19 12:59 Oxygen Flow Rate 2 08/26/19 12:59 Pain Level 0 08/26/19 07:43 Comment 08/26/19 04:13 Intake & Output 08/25/19 08/26/19 08/26/19 23:59 11:59 23:59 Intake Total 360 / 720 360 / 720 Output Total 350 / 950 600 / 950 Balance 10 / -230 -240 / -230 Weight 76 kg 71.5 kg Intake: Oral 360 / 720 360 / 720 Output: Urine 350 / 950 600 / 950 Other: Urine Color Light Sue Light Sue Urine Appearance Clear Clear Voiding Methods Bedside Commode Laboratory Results WBC 4.67 k/cumm (4.4-10.8) D 08/26/19 06:10 RBC 3.75 m/cumm (4.00-5.20) L 08/26/19 06:10 Hgb 11.6 g/dL (12.0-15.5) L 08/26/19 06:10 Hct 35.3 % (36.0-46.0) L 08/26/19 06:10 MCV 94.1 fL (80-95) 08/26/19 06:10 MCH 30.9 pg (27.0-33.0) 08/26/19 06:10 MCHC 32.9 g/dL (32.0-36.0) 08/26/19 06:10 RDW 12.8 % (11.7-14.6) 08/26/19 06:10 Plt Count 395 x1000/uL (130-400) 08/26/19 06:10 MPV 9.7 fL (8.0-11.0) 08/26/19 06:10 Immature Gran % 0.2 08/26/19 06:10 Neutrophils % 89.1 08/26/19 06:10 Lymphocytes % 8.8 08/26/19 06:10 Monocytes % 1.3 08/26/19 06:10 Eosinophils % 0.2 08/26/19 06:10 Basophils % 0.4 08/26/19 06:10 Absolute Neutrophils 4.16 k/cumm (1.2-6.7) 08/26/19 06:10 Absolute Lymphocytes 0.41 k/cumm (1.2-3.4) L 08/26/19 06:10 Absolute Monocytes 0.06 k/cumm (0.11-0.7) L 08/26/19 06:10 Absolute Eosinophils 0.01 k/cumm (0.0-0.7) 08/26/19 06:10 Absolute Basophils 0.02 k/cumm (0.0-0.2) 08/26/19 06:10 PT 9.7 sec (9.3-11.0) 08/25/19 23:55 INR 1.0 (0.9-1.1) 08/25/19 23:55 APTT 23.7 sec (21.0-31.4) 08/25/19 23:55 D-Dimer 1302 ng/mlFEU (<500) H 08/26/19 07:13 Sodium 133 mmol/L (136-145) L 08/26/19 14:39 Potassium 5.0 mmol/L (3.5-5.1) 08/26/19 14:39 Chloride 97 mmol/L (98-107) L 08/26/19 14:39 Carbon Dioxide 26.6 mmol/L (21.0-32.0) 08/26/19 14:39 Anion Gap 9.4 mmol/L (3-11) 08/26/19 14:39 BUN 28 mg/dL (7-18) H 08/26/19 14:39 Creatinine 1.13 mg/dL (0.55-1.02) H 08/26/19 14:39 Estimated GFR/1.73 m2 48.95 (mL/min/1.73m2) 08/26/19 14:39 Glucose 113 mg/dL (74-106) H D 08/26/19 14:39 Calcium 9.6 mg/dL (8.5-10.1) 08/26/19 14:39 Magnesium 2.0 mg/dL (1.8-2.4) 08/25/19 23:55 Total Bilirubin 0.2 mg/dL (0.2-1.0) 08/25/19 23:55 AST 24 U/L (15-37) 08/25/19 23:55 ALT 35 U/L (14-59) 08/25/19 23:55 Alkaline Phosphatase 62 U/L (46-116) 08/25/19 23:55 Creatine Kinase 86 U/L (26-192) 08/26/19 12:45 Troponin I < 0.05 ng/Ml (<0.06) 08/26/19 09:00 NT-Pro-B Natriuret Pep 1808 pg/mL (<300) 08/26/19 06:10 Total Protein 7.8 g/dL (6.4-8.2) 08/25/19 23:55 Albumin 3.8 g/dL (3.4-5.0) 08/25/19 23:55
[2019-08-26] MEDS: Acetaminophen 325 MG TAB PO (19:37)
[2019-08-26] MEDS: predniSONE 20 MG TAB 40 MG PO (19:39)
[2019-08-26] MEDS: Atorvastatin 40 MG TAB 80 MG PO (21:22)
[2019-08-26] MEDS: Ibuprofen 600 MG TAB PO (21:22)
[2019-08-27] VITALS (7 sets, daily range): BP systolic 110–141; BP diastolic 70–80; PULSE 71–96; RESP 4–20; TEMP 36.1–36.6; O2SAT 91–95
[2019-08-27] MEDS: Ipratropium 0.5 MG/2.5 ML UPD VIAL UPD ×2 (00:10→05:33)
[2019-08-27 07:05] LABS: Abs Immature Grans 0.02 k/cumm (0.0-0.09); Absolute Lymphocyte Count 0.59 k/cumm (1.2-3.4); Absolute Monocyte Count 0.42 k/cumm (0.11-0.7); HCT 35.2 % (36.0-46.0); HGB 11.5 g/dL (12.0-15.5); Immature Grans % 0.2; Lymphocytes % 5.3; Mean Corp. HGB Concentration 32.7 g/dL (32.0-36.0); Mean Corpuscular Hemoglobin 30.7 pg (27.0-33.0); Mean Corpuscular Volume 93.9 fL (80-95); Mean Platelet Volume 10.1 fL (8.0-11.0); Monocytes % 3.8; Neutrophils % 90.7; Platelet Count 387 x1000/uL (130-400); RBC 3.75 m/cumm (4.00-5.20); RBC Distribution Width 12.9 % (11.7-14.6); White Blood Cell Count 11.16 k/cumm (4.4-10.8)
[2019-08-27 07:12] LABS: Absolute Neutrophil Count 10.12 k/cumm (1.2-6.7)
[2019-08-27 07:28] LABS: Anion Gap 8.5 mmol/L (3-11); BUN 33 mg/dL (7-18); CO2 27.5 mmol/L (21.0-32.0); CREATININE 0.94 mg/dL (0.55-1.02); Calcium 9.1 mg/dL (8.5-10.1); Chloride 101 mmol/L (98-107); Glucose 149 mg/dL (74-106); Magnesium 1.9 mg/dL (1.8-2.4); Potassium 4.8 mmol/L (3.5-5.1); Sodium 137 mmol/L (136-145)
[2019-08-27] MEDS: Budesonide/Formoterol 160/4.5 6 GM 60 PUFF INH IH (08:32)
[2019-08-27] MEDS: Omeprazole 20 MG CAPCR 40 MG PO (08:33)
[2019-08-27] MEDS: Folic Acid 1 MG TAB PO (08:33)
[2019-08-27] MEDS: Clopidogrel 75 MG TAB PO (08:33)
[2019-08-27] MEDS: Metoprolol CR 50 MG TABCR PO (08:34)
[2019-08-27] MEDS: Aspirin E.C. 81 MG TABEC PO (08:34)
[2019-08-27] MEDS: predniSONE 20 MG TAB 40 MG PO (08:34)
[2019-08-27] MEDS: Thiamine 100 MG TAB PO (08:34)
[2019-08-27] MEDS: Pregabalin 50 MG CAP 150 MG PO (08:34)
[2019-08-27] MEDS: Normal Saline Flush 10 ML SYR IVP (09:21)
--- NOTE | 2019-08-27 11:54 | W.PM.DS.N ---
Date of service: 08/27/19 Time of Service: 11:54 DS: Diagnosis Discharge Diagnosis (1) Acute exacerbation of chronic obstructive pulmonary disease (COPD): Status: Acute (2) Non-cardiac chest pain: Status: Resolved Asessment and Plan: ACS ruled out (3) SVT (supraventricular tachycardia): Status: Resolved Asessment and Plan: In setting of aggressive bronchodilator use (4) Hyperkalemia: Status: Resolved Asessment and Plan: jurgen-i d/c'ed on discharge medications. ?side effect of lovenox (5) CAD (coronary artery disease): Status: Chronic (6) Cardiomyopathy: Status: Chronic Asessment and Plan: EF of 50% on TTE 08/26/19 (7) Elevated d-dimer: Status: Acute Asessment and Plan: Not clinically significant. DVT/PE ruled out. (8) Chronic respiratory failure with hypoxia: Status: Chronic Asessment and Plan: At baseline (9) Left bundle branch block: Status: Chronic (10) HTN (hypertension): Status: Chronic (11) Hypercholesterolemia: Status: Chronic (12) Incidental lung nodule, greater than or equal to 8mm: Status: Chronic Asessment and Plan: Needs outpatient follow up. Discharge Plan Disposition Patient Disposition: HOME Condition: Improving Discharge Details Chief Complaint: Chest Pain Clinical Impression: Chest pain, COPD (chronic obstructive pulmonary disease) Reason For Visit: DYSPNEA, CHEST PAIN Admit Date/Time: 08/26/19 03:10 Admit Provider: Blas Rodney Attending Provider: Blas Rodney Primary Care Provider: Connie Solis ED Provider: Rico Starks [facility] Course Hospital Course: Ms López is a 59 year old female with PMHx of CAD s/p stent to LAD 6 weeks ago in [place], as well as h/o COPD, chronic hypoxic respiratory failure, requiring 2L of oxygen at night, and hypertension, who was admitted to [facility] hospitalist service on 08/26/19 for chest pain and acute exacerbation of COPD. She ruled out for acute coronary syndrome - her troponins had remained negative, and her EKG already has a LBBB, which is not new. She had an echocardiogram, which revealed an EF of 50%, no ventricular segmental wall motion abnormalities, though there was left ventricular septum wall motion abnormality consistent with LBBB. A trivial pericardial effusion was seen, but we do not believe that the patient has true pericarditis, as her pain resolved with treatment of her respiratory illness. She did have one episode of SVT (12 beats, asymptomatic) shortly following a nebulizer treatment - as a result, we have split her duonebs up into atrovent and xopenex. PCP is advised that the patient might benefit from extended heart monitoring as outpatient to look for any more SVT. For her COPD exacerbation, she was initiated on bronchodilators, systemic steroids, symbicort. She was not treated with antibiotics as the etiology of her COPD exacerbation is likely viral with a negative CT of the chest and nonproductive cough. The patient is on oral steroids and feels back to baseline from her respiratory stand point and is able to be discharged home today. Her ambulatory pulse ox on room air showed saturations >91%. As far as her home oxygen, the patient traveled to [place] from [place] with 1 tank of oxygen and not a concentrator. She had run out of oxygen. Arrangements are being made with [facility] to send the patient home today with enough oxygen for her to get through 1 night. She is expected to return to [place] tomorrow. Her D-dimer was elevated in the ED - CTA of the chest ruled out a PE, and venous dopplers ruled out a DVT. She was empirically treated with lovenox while the dopplers were pending. This may be responsible for the patient becoming hyperkalemic up to 6.1 on this admission, but the patient was also on lisinopril as outpatient. At this point, both have been d/c'ed. Potassium was treated with D50/insulin/veltassa/renal diet. It is 4.8 on the day of discharge. I am not resuming lisinopril on discharge but will defer this decision to PCP whom the patient expects to see on 08/29/19. Care for patient as well as completion of her discharge summary took 45 minutes on day of discharge. Home Meds and New Rx's Prescriptions: New levalbuterol HCl 1.25 mg/3 mL Solution For Nebulization 1.25 mg UPD Q4H PRN PRN (Reason: shortness of breath or wheezing) Qty: 75 RF: 0 prednisone 20 mg Tablet 40 mg PO DAILY Qty: 6 RF: 0 nicotine 21 mg/24 hr Patch 24 Hour 21 mg transdermal DAILY PRN PRNQty: 30 RF: 0 guaifenesin [Mucinex] 600 mg tablet extended release 12hr 600 mg PO BID PRN PRN (Reason: cough) Qty: 10 RF: 0 benzonatate [Tessalon Perles] 100 mg capsule 100 mg PO TID PRN PRN (Reason: cough) Qty: 30 RF: 0 Continued atorvastatin 80 mg Tablet 80 mg PO QHS RF: 0 metoprolol succinate 50 mg Tablet Extended Release 24 Hr 50 mg PO DAILY RF: 0 alendronate 70 mg Tablet 70 mg PO QWEEK RF: 0 thiamine HCl (vitamin B1) 100 mg Tablet 100 mg PO DAILY RF: 0 clopidogrel 75 mg Tablet 75 mg PO DAILY RF: 0 nicotine 10 mg Cartridge 1 inh INHALATION 4-6XD PRNRF: 0 aspirin [Aspir-81] 81 mg Tablet,Delayed Release (Dr/Ec) 81 mg PO DAILY RF: 0 nitroglycerin 0.4 mg Tablet, Sublingual 0.4 mg sublingual PRN PRNRF: 0 folic acid 1 mg Tablet 1 mg PO DAILY RF: 0 furosemide 20 mg Tablet 60 mg PO BID RF: 0 tiotropium bromide 18 mcg Capsule, W/Inhalation Device 18 mcg INHALATION DAILY RF: 0 pregabalin 150 mg Capsule 150 mg PO DAILY RF: 0 calcium carbonate-vitamin D3 250-125 mg-unit Tablet 1 tab PO DAILY RF: 0 budesonide-formoterol 160-4.5 mcg/actuation Hfa Aerosol Inhaler 2 puff INHALATION BID RF: 0 omeprazole 20 mg Tablet,Delayed Release (Dr/Ec) 20 mg PO DAILY RF: 0 Discontinued ipratropium-albuterol 0.5 mg-3 mg(2.5 mg base)/3 mL Solution For Nebulization 3 ml INHALATION QID RF: 0 lisinopril 5 mg Tablet 5 mg PO DAILY RF: 0 albuterol sulfate 90 mcg/actuation Hfa Aerosol Inhaler 2 puff INHALATION RF: 0 Discharge Instructions Instructions: Potassium Content of Foods List (DC), COPD (Chronic Obstructive Pulmonary Disease) (DC) Additional Instructions: Follow a low potassium diet - avoid bananas, tomatoes, dairy. Finish your steroids as prescribed. Return to the hospital with any fever, bleeding, chest pain, or shortness of breath. Follow up with your PCP on 08/29/19. Activity:: Activity as Tolerated Equipment/Supplies:: No Equipment Needed Diet:: low potassium diet Discharge Orders Discharge Orders: Discharge Order (Routine); Ordered 08/27/19 Ordered By: Shobha Ochoa DS: Summary Status at Discharge Functional status at discharge: independent ambulation Overall status at discharge: patient is progressing back to baseline Mental Status: mental status grossly normal Speech and Movement: speech and movement normal Mood: congruent mood Affect: normal affect Exam Narrative Exam Narrative: General: Very pleasant middle-aged female, on room air, coughing slightly, no visible shortness of breath HEENT: EOMI, MMM Heart: RRR, no m/r/g Lungs: coarse breath sounds B, but no wheezing Abdomen: soft, nontender, nondistended Extremities: warm, trace edema BLE's, no c/c Psych Mental Status: mental status grossly normal Speech and Movement: speech and movement normal Mood: congruent mood Affect: normal affect DS: Data Vitals/I&O Vitals and I&O: Vital Signs Temperature 36.6 C 08/27/19 11:08 Temperature Source Tympanic 08/27/19 11:08 Pulse 74 08/27/19 11:08 Pulse Rhythm Regular 08/27/19 09:13 Pulse 76 08/26/19 03:46 Respiratory Rate 16 08/27/19 11:08 Respiratory Effort Non-Labored 08/27/19 09:13 Respiratory Depth Normal 08/27/19 09:13 Respiratory Pattern Normal 08/27/19 09:13 Blood Pressure 110/73 08/27/19 11:08 Blood Pressure Mean 56 08/26/19 03:45 Pulse Oximetry 95 08/27/19 11:08 Oxygen Delivery Method Room Air 08/27/19 11:08 Oxygen Flow Rate 0 08/27/19 11:08 Pain Level 0 08/27/19 11:08 Comment 08/27/19 05:00 Intake & Output 08/26/19 08/26/19 08/27/19 11:59 23:59 11:59 Intake Total 360 / 720 360 / 720 240 / 240 Output Total 350 / 1300 950 / 1300 200 / 200 Balance 10 / -580 -590 / -580 40 / 40 Weight 71.5 kg 71.4 kg Intake: Oral 360 / 720 360 / 720 240 / 240 Output: Urine 350 / 1300 950 / 1300 200 / 200 Other: Urine Color Light Sue Yellow Yellow Urine Appearance Clear Clear Clear Urine Odor Normal Normal Comment Voiding independently in bathroom Voiding Methods Bedside Commode Toilet Toilet Data Completed and Pending Completed studies during hospitalization [Text1]: CTA chest 08/26/19: 1. There is no evidence of a pulmonary embolus, thoracic aortic dissection or aneurysm. 2. Pulmonary emphysema. 3. Cholelithiasis. Question of calcification of the wall of the gallbladder. CT scan of the abdomen and or ultrasound of the gallbladder should be considered for further evaluation. CXR 08/26/19: Prominent pulmonary vasculature and interstitium. This may represent pulmonary edema or interstitial pneumonia. Please correlate clinically. Venous doppler BLE's 08/26/19: Right: Negative for DVT Left: Negative for DVT Echo - TTE 08/26/19: 1. The left ventricle is borderline dilated. There is normal global left ventricular systolic function. EF is estimated to be 50%. There are no left ventricular segmental wall motion abnormalities. 2. Right ventricular chamber size, wall thickness, and systolic function are within normal limits. 3. There is mild to moderate (1-2+/4+) mitral regurgitation present. 4. A trivial pericardial effusion is visualized. Labs on day of discharge: Labs from last 24 hours 08/27/19 08/27/19 08/26/19 06:35 06:35 14:39 WBC 11.16 H D RBC 3.75 L Hgb 11.5 L Hct 35.2 L MCV 93.9 MCH 30.7 MCHC 32.7 RDW 12.9 Plt Count 387 MPV 10.1 Immature Gran % 0.2 Neutrophils % 90.7 Lymphocytes % 5.3 Monocytes % 3.8 Eosinophils % 0.0 Basophils % 0.0 Absolute Neutrophils 10.12 H Absolute Lymphocytes 0.59 L Absolute Monocytes 0.42 Absolute Eosinophils 0.00 Absolute Basophils 0.00 Sodium 137 133 L Potassium 4.8 5.0 Chloride 101 97 L Carbon Dioxide 27.5 26.6 Anion Gap 8.5 9.4 BUN 33 H 28 H Creatinine 0.94 1.13 H Estimated GFR/1.73 m2 >= 60.00 48.95 Glucose 149 H 113 H D Calcium 9.1 9.6 Magnesium 1.9 Creatine Kinase 08/26/19 08/26/19 12:45 09:00 WBC RBC Hgb Hct MCV MCH MCHC RDW Plt Count MPV Immature Gran % Neutrophils % Lymphocytes % Monocytes % Eosinophils % Basophils % Absolute Neutrophils Absolute Lymphocytes Absolute Monocytes Absolute Eosinophils Absolute Basophils Sodium 133 L Potassium 5.0 6.1 H* Chloride 96 L Carbon Dioxide 28.0 Anion Gap 9.0 BUN 27 H Creatinine 1.07 H Estimated GFR/1.73 m2 52.13 Glucose 501 H* D Calcium 9.1 Magnesium Creatine Kinase 86 PFSH Family History (Updated 08/26/19 @ 04:13 by Blas Rodney) Mother Depression Dementia Parkinsonism Brother Heart disease Brother Heart disease Social History (Updated 08/26/19 @ 04:14 by Blas Rodney) Smoking/Tobacco Use Status: Current every day Tobacco Type: cigarettes Alcohol Intake: current Alcohol Intake frequency: 3 or more drinks per day Alcohol type: beer Substance use type: does not use Do you feel safe at home: Yes
--- NOTE | 2019-08-27 17:23 | CMDISCH_ITS ---
- If Service Date Differs Date of service: 08/27/19 Time of Service: 17:23 LACE Index Scoring Tool - Questions: Length of Stay (in days): 1 Acuity (Admit via E.D.?): Yes Comorbidities: Previous M.I., Congestive Heart Failure, Chronic Pulmonary Disease E.D. Visits: 1 - Answers: Total Score: 10 Risk of Readmission: High Risk Care Management Discharge Reason for Hospitalization: Dyspnea, chest pain. Discharge Plan: Jazmin will be discharged home to [place] where she lives. She will transport via private vehicle with family.Arrangements were coordinated by RT to ensure that she had an adequate oxygen supply for the trip. She requires 2 liters of O2 at night only. She will follow up with her PCP and discharge plan of care. Patient/Family Education Needs: Discharge plan, limitations, follow up plan, Ask Me Three.
== END 2019-08-27 13:25 | disposition home or self-care (01) | DRG 191 ==
LOC: ER 08-26 02:47 → MS 08-26 04:06
PROVIDERS: Admitting Provider Internal Medicine; Emergency Provider Emergency Medicine; Visit Provider Internal Medicine
DX: J44.1 Chronic obstructive pulmonary disease with (acute) exacerbation (principal); I47.1 Supraventricular tachycardia; I42.9 Cardiomyopathy, unspecified; J96.11 Chronic respiratory failure with hypoxia; D68.9 Coagulation defect, unspecified; R07.89 Other chest pain; E87.5 Hyperkalemia; I25.10 Atherosclerotic heart disease of native coronary artery without angina pectoris; I44.7 Left bundle-branch block, unspecified; I10 Essential (primary) hypertension; E78.00 Pure hypercholesterolemia, unspecified; R91.1 Solitary pulmonary nodule; Z95.5 Presence of coronary angioplasty implant and graft; F17.210 Nicotine dependence, cigarettes, uncomplicated; I25.5 Ischemic cardiomyopathy; I25.2 Old myocardial infarction; F10.10 Alcohol abuse, uncomplicated; Z99.81 Dependence on supplemental oxygen
CPT/HCPCS: 36415; 71275; 80048; 80053; 82550; 93005; 93306; 94618; 94640; 96374; 96375; 99223; 99239; 99285; NC; 71045; 83735; 83880; 84132; 84484; 85025; 85379; 85610; 85730; 93010; 93970; J1650; J1940; J2270; J2405; J2930; J3490; J7512; J7614; J7620; J7644